=== PATIENT | male | born 1945 | race Caucasian/White ===

== ENCOUNTER 2019-04-09 15:46 | Outpatient (CLI) | payer MEDICARE, OTHER, SELFPAY ==
--- NOTE | ~2019-04-09 | XR_ITS ---
EXAMINATION: XR chest 2V DATE: 04/09/2019 16:27 INDICATION: Primary lung cancer of the right upper lobe TECHNIQUE: PA and lateral views of the chest were obtained. COMPARISON: Chest radiograph dated 02/25/[address] dated 02/14/2019 FINDINGS: No interval change in a large mass at the right upper lobe extending to the apex consistent with biop sy-proven non-small cell carcinoma. A couple additional smaller nodular opacities in the right midlun g consistent with metastatic disease. No new airspace opacities, pulmonary edema, pleural effusion or pneumothorax. Heart size is normal. Mild left and moderate right glenohumeral osteoarthritis. IMPRESSION: 1. Large right upper lobe mass consistent with biopsy-proven primary bronchogenic carcinoma with a co uple likely metastatic nodules in the right midlung zone. Reviewed, dictated and finalized at location A. ONNEL ADVISER IMPRESSION: 1. Large right upper lobe mass consistent with biopsy-proven primary bronchogen ic carcinoma with a couple likely metastatic nodules in the right midlung zone.
== END 2019-04-09 15:47 | disposition home or self-care (01) ==
LOC: ANHIMG 16:02
PROVIDERS: PCP Family Medicine
DX: C34.11 Malignant neoplasm of upper lobe, right bronchus or lung (principal)
CPT/HCPCS: 71046

== ENCOUNTER 2019-06-18 08:33 | Outpatient (CLI) | payer MEDICARE, OTHER, SELFPAY ==
--- NOTE | ~2019-06-18 | CT_ITS ---
EXAMINATION: CT chest w con EXAM DATE: 06/18/2019 09:40 INDICATION: Right lung cancer, response to treatment. TECHNIQUE: Spiral CT of the chest following intravenous injection of 75 mL Omnipaque 350. Axial, cor onal and sagittal images were reviewed. Coronal maximum intensity pixel images of chest reviewed. [facility] dose-length product (DLP) for this examination was 279.56 mGy-cm. The exposure was tailored accor ding to patient size (auto mA exposure control), and iterative reconstruction (ASIR) was used as dawson tional dose reduction technique. Comparison is made to prior examination from 02/14/2019. FINDINGS: There is been interval decrease in bulk, size of the right upper lobe mass, measuring 6.6 x 3.8 cm today versus 7.6 x 5.0 at similar level in February. This soft tissue does extend down into [facility] hilum, but no pathologically enlarged hilar adenopathy. There is occlusion of the right upper lobe bronchus as previously seen. Again there are approximately 8 right lung nodules, appear to have incr eased slightly in size. For example a right lower lobe superior segmental nodule measures 1.2 cm toda y, was 0.9 cm. There are left paratracheal, prevascular lymph nodes which are not pathologically enlarged, but are l arger compared to prior study and could have metastatic involvement. Previously seen enlarged right l ower paratracheal lymph node has normalized in size. There is mild emphysema. There are no pleural o r pericardial effusions. There is no pneumothorax. Heart normal in size. There is mild coronar y arterial calcification, arterial sclerosis. Couple of fluid density liver lesions unchanged likely cysts. Adrenal glands unremarkable. Sclerotic focus in the posterior aspect of T4 measuring 6 mm un changed, could be a bone island given no other foci identified. IMPRESSION: 1. Mixed response. Decrease in size of right upper lobe mass. 2. Approximately 8 right lung metastases with mild increase in size. 3. Decrease in size of right lower paratracheal lymph node, but increase in size of some left paratr acheal and prevascular lymph nodes. 4. Mild emphysema. Reviewed, dictated and finalized at location A. IMPRESSION: 1. Mixed response. Decrease in size of right upper lobe mass. 2. Approximately 8 right lung metastases with mild increase in size. 3. Decrease in size of right lower paratracheal lymph node, but increase in si ze of some left paratracheal and prevascular lymph nodes. 4. Mild emphysema.
[2019-06-18 09:20] LABS: Estimated Glomerular Filt Rate > 60
== END 2019-06-18 08:34 | disposition home or self-care (01) ==
PROVIDERS: PCP Family Medicine; Visit Provider Internal Medicine Medical Oncology
DX: C34.11 Malignant neoplasm of upper lobe, right bronchus or lung (principal); R59.0 Localized enlarged lymph nodes; J43.9 Emphysema, unspecified
CPT/HCPCS: 36415; 71260; Q9967

== ENCOUNTER 2019-12-24 06:51 | Outpatient (NON) | payer MEDICARE, OTHER, SELFPAY ==
[2019-12-25 00:29] LABS: SARS-CoV-2 RNA PCR Negative
== END 2019-12-24 06:52 ==
LOC: ANHCOVIDDT 06:57
PROVIDERS: PCP Family Medicine; Visit Provider Physician Assistant Medical
DX: Z20.828 Contact with and (suspected) exposure to other viral communicable diseases (principal)
CPT/HCPCS: 87635; C9803; U0003

== ENCOUNTER 2020-07-31 06:14 | Emergency (ER) | payer MEDICARE, OTHER, SELFPAY ==
--- NOTE | ~2020-07-31 | XR_ITS ---
XR chest 1V portable 07/31/2020 07:01 Indication: Shortness of breath Procedure: AP portable chest Comparison: Comparison to multiple prior studies sequentially, with oldest reviewed study dated 02/25. Findings: Portacatheter tip in the SVC. Heart size normal. Left lung clear. Decreased size of right a pical mass compared with prior studies. Patchy right-sided infiltrates are present with more focal no dular density right midlung zone, possibly metastatic disease. Impression: 1: Decreased size of right upper lobe mass, consistent with known bronchogenic carcinoma. Probable me tastases in the right lung. 2: Patchy ill-defined infiltrates of the right lung, suspicious for pneumonia. Reviewed, dictated and finalized at location A. Impression: 1: Decreased size of right upper lobe mass, consistent with known bronchogenic carcinoma. Probable metastases in the right lung. 2: Patchy ill-defined infiltrates of the right lung, suspicious for pneumonia.
[2020-07-31 06:20] VITALS: BP 155/47; PULSE 104; RESP 26; TEMP 36.6; O2SAT 97
--- NOTE | 2020-07-31 06:34 | ECG_ITS ---
Measurements Intervals [place] Rate: 106 P: -4 TN: 144 QRS: 24 QRSD: 84 T: 61 QT: 329 QTc: 437 Interpretive Statements SINUS TACHYCARDIA ABNORMAL ECG Electronically Signed On 07-31-2020 10:07:47 CDT by Kevin Olivarez D.O.
[2020-07-31] MEDS: HEPARIN SOD FLUSH 500 UNITS/5 ML SYRINGE ×2 (06:46→10:15)
[2020-07-31 06:47] VITALS: BP 132/80; PULSE 101; RESP 20; O2SAT 94
[2020-07-31 06:57] LABS: Basophils Percent Auto 0.3 % (0.2-1.2); Eosinophils Absolute Auto 0.1 K/mm3 (0-0.3); Eosinophils Percent Auto 1.9 % (0-4.4); Hematocrit 38.1 % (42.0-52.0); Hemoglobin 11.8 g/dL (14.0-18.0); Immature Granulocyte Absolute 0.02 K/mm3 (0.00-0.031); Immature Granulocyte Percent A 0.3 % (0-0.5); Lymphocytes Absolute Auto 1.77 K/mm3 (0.9-3.2); Lymphocytes Percent Auto 28.5 % (18.3-44.2); Mean Corpuscular Hemoglobin 30.3 pg (26-34); Mean Corpuscular Volume 97.7 fl (80-100); Mean Platelet Volume 10.5 fl (7.4-10.4); Monocytes Absolute Auto 0.7 K/mm3 (0.1-0.6); Monocytes Percent Auto 10.8 % (2.6-8.5); Neutrophils Absolute Auto 3.6 K/mm3 (1.3-6.7); Neutrophils Percent Auto 58.2 % (45.5-73.1); Platelet Count Result 171 k/mm3 (150-375); Red Cell Distribution Width 20.6 % (11.5-14.5); White Blood Count 6.2 K/mm3 (4.5-10.0)
[2020-07-31 07:09] LABS: Alanine Aminotransferase 14 U/L (4-50); Albumin Level 2.8 g/dL (3.5-5.1); Alkaline Phosphatase 67 U/L (38-126); Anion Gap 5 mmol/L (8-16); Aspartate Amino Transferase 27 U/L (17-59); Bilirubin,Total 0.4 mg/dL (0.2-1.3); Blood Urea Nitrogen 12 mg/dL (9-20); Calcium 8.1 mg/dL (8.4-10.2); Carbon Dioxide 25 mmol/L (22-30); Chloride 110 mmol/L (98-107); Estimated CRCL calculation 67 ml/min; Estimated Glomerular Filt Rate > 60; Glucose 96 mg/dL (75-110); Magnesium 1.6 mg/dL (1.6-2.3); Sodium 140 mmol/L (137-145)
[2020-07-31 07:11] LABS: Prothrombin Time 13.9 Seconds (11.1-14.7)
[2020-07-31 07:13] LABS: Partial Thromboplastin Time 93.8 SECONDS (22.3-36.8)
[2020-07-31 07:19] LABS: NT Pro B Type Natriuretic Pept 105 pg/mL (5-100); Troponin I < 0.012 ng/mL (0.000-0.034)
[2020-07-31 08:26] LABS: Add Urine Microscopic? YES; Appearance Urine Cloudy (Clear); Bilirubin Urine Negative (Negative); Color Urine Amber (Yellow); Glucose Urine UA Negative (Negative); Ketones Urine Negative (Negative); Leukocyte Esterase Ur 2+ LEU/UL (Negative); Mucus Urine Heavy /lpf; Nitrate Urine Negative (Negative); Protein Urine 1+ mg/dL (Negative); Specific Grav Ur 1.021 (1.001-1.035); Squamous Epithelial Cell Urine Many /hpf (Few); Urobilinogen Urine Negative mg/dL (<2.0)
[2020-07-31 08:29] LABS: Blood Urine Negative (Negative)
[2020-07-31 08:42] VITALS: BP 116/70; PULSE 104; RESP 20; O2SAT 98
[2020-07-31 09:33] VITALS: BP 118/59; PULSE 113; RESP 20; O2SAT 97
--- NOTE | 2020-07-31 09:51 | ED.SOB ---
HPI - SOB/Dyspnea General Chief Complaint: Shortness of Breath/Dyspnea Stated Complaint: short of breath Time Seen by Provider: 07/31/20 07:12 Source: patient and family Mode of arrival: wheelchair Limitations: no limitations History of Present Illness HPI Narrative: 74-year-old with a history of stage IV lung cancer presently on chemo holiday here with complaints of shortness of breath since early this morning. Patient states that he woke up with difficulty breathing. He states he has cough which is nothing unusual for him. He denies any fever no history of any chest pain. Patient states that he is off chemotherapy for few weeks until he gets a repeat PET scan which is on August 14. He follows with Dr. Mcintyre for his lung cancer. MD elicited complaint: shortness of breath Pertinent past history: other (Lung cancer) Onset (ago): hour(s) (2) Timing: improved Severity: moderate Exacerbating factors: nothing Relieving factors: nothing Known history of: other (Lung cancer) Associated symptoms: denies other symptoms Treatment prior to arrival: none Related Data Home oxygen amount: none Home Medications Medication Instructions Recorded Confirmed finasteride 5 mg tablet 5 mg PO DAILY 02/08/19 09/16/19 aspirin 81 mg tablet,delayed 81 mg PO DAILY 05/17/19 09/16/19 release Allergies Allergy/AdvReac Type Severity Reaction Status Date / Time No Known Allergies Allergy Verified 07/05/19 10:29 Review of Systems Review of Systems: All systems reviewed & are unremarkable except as noted in HPI and below Constitutional: Constitutional: Reports no additional constitutional complaints Eyes: Eyes: Reports no additional eye complaints ENT: Reports system reviewed and no additional complaints, except as documented Cardiovascular: Cardiovascular: Reports no additional cardiovascular complaints Respiratory: Respiratory: Reports as per HPI Gastrointestinal: Gastrointestinal: Reports no additional gastrointestinal complaints Musculoskeletal: Musculoskeletal: Reports no additional musculoskeletal complaints Integumentary/Breasts: Skin/Breast: Reports system reviewed and no additional complaints, except as docu [facility] Past Medical History Medical History (Updated 07/31/20 @ 10:02 by Nima Schumacher MD) Cough Epistaxis Family History Family History Father Family history of coronary artery disease Family history of throat cancer Social History Social History Smoking status: Former smoker Alcohol intake: current Exam Narrative: Exam Narrative: GENERAL: Well-appearing, well-nourished, and in no acute distress. HEAD: Normocephalic, atraumatic. EYES: PERRLA and EOMI.. NECK: Supple. CHEST: Few rhonchi on auscultation .. No respiratory distress. HEART: Regular rate and rhythm. No murmur heard. Normal peripheral pulses. ABDOMEN: Soft, nontender, nondistended, normal active bowel sounds. EXTREMITIES: Normal range of motion. No edema. SKIN: Warm, dry, no rash. NEURO: No focal deficits. Alert and oriented x3. PSYCH: Normal mood and affect. Course Course Emergency Course: Patient states he is feeling much better on arrival. I discussed lab work, chest x-ray findings with the patient and family. I also discussed with Dr. Mcintyre informed him about the chest x-ray findings. He recommended antibiotic and steroids for 10 days. Patient does feel comfortable going home. Vital Signs Vital signs: Vital Signs Temperature 36.6 C 07/31/20 06:20 Pulse Rate 104 H 07/31/20 06:20 Respiratory Rate 26 H 07/31/20 06:20 Blood Pressure 155/47 H 07/31/20 06:20 Pulse Oximetry 97 07/31/20 06:20 Temperature 36.6 C 07/31/20 06:20 Pulse Rate 113 H 07/31/20 09:33 Respiratory Rate 20 07/31/20 09:33 Blood Pressure 118/59 L 07/31/20 09:33 Pulse Oximetry 97 07/31/20 09:33 MDM - SOB/Dyspnea [place]
[2020-07-31 10:15] VITALS: BP 124/57; PULSE 100; RESP 20; O2SAT 95
--- NOTE | 2020-07-31 10:15 | PC.NURSE ---
Per EDP via verbal order readback give another heparin flush prior de-accessing their port-a-cath.
== END 2020-07-31 10:15 | disposition home or self-care (01) ==
PROVIDERS: Emergency Medicine; Emergency Provider Family Medicine; PCP Family Medicine
DX: J18.9 Pneumonia, unspecified organism (principal); C34.11 Malignant neoplasm of upper lobe, right bronchus or lung; R00.0 Tachycardia, unspecified
CPT/HCPCS: 36415; 71045; 80053; 81001; 83735; 83880; 84484; 85025; 85610; 85730; 87086; 87088; 93005; 99284

== ENCOUNTER → 2020-11-17 11:29 | Outpatient (CLI) | payer MEDICARE, OTHER, SELFPAY ==
--- NOTE | ~2020-11-17 | XR_ITS ---
XR chest 2V DATE: 11/17/2020 11:47 INDICATION: Cough TECHNIQUE: 2 views COMPARISON: 07/31/2020 portable upright AP chest FINDINGS: Right internal jugular Port-A-Cath catheter is again noted in the superior vena cava near t he superior cavoatrial junction. There is diminished size of the right upper lobe mass since 06/18/2019, stable or mildly increased in s ize since 07/31/2020. There is right upper lung volume loss with elevation of the right hilum and prominent right apical ca pping. There is mild bibasilar infiltrate and/or atelectasis. There are small pleural effusions, new since . Heart size is normal. No pulmonary vascular congestion or pneumothorax is noted. There is a ortic arch calcification and mild aortic unfolding. IMPRESSION: Stable or mildly increased size of right upper lobe mass 07/31/2020 Mild bibasilar infiltrate and/atelectasis and new small pleural effusions Reviewed, dictated and finalized at location A.
== END ==
PROVIDERS: PCP Family Medicine; Visit Provider Family Medicine
DX: R05.1 Acute cough (principal); R91.8 Other nonspecific abnormal finding of lung field; J90 Pleural effusion, not elsewhere classified
CPT/HCPCS: 71046

== ENCOUNTER 2020-11-26 13:33 | Emergency (ER) | payer MEDICARE, OTHER, SELFPAY ==
--- NOTE | ~2020-11-26 | CT_ITS ---
EXAMINATION: CTA chest PE protocol DATE: 11/26/2020 17:18 INDICATION: Dyspnea. History of lung cancer. TECHNIQUE: Computed tomography angiography (CTA) of the chest was performed with 100 mL Omnipaque-350 intravenous contrast timed to evaluate the pulmonary arteries. Coronal maximum intensity projection 3D-reconstructions were created by the technologist. Automated exposure control and iterative reconst ruction technique were employed. Exam dose: 435.03 mGy-cm total exam DLP. COMPARISON: 11/26/2020 PA and lateral chest 06/18/2019 CT chest FINDINGS: There is diagnostic contrast enhancement of the pulmonary arteries and no evidence of pulmo nary embolus. No thoracic aortic aneurysm or dissection. Normal heart size. Trace pericardial fluid. Prominent soft tissue density projects posterior laterally at the right suprahilar area which may rep resent residual neoplasm and/or scarring. 10.4 mm and 6 mm right lung nodules (images 55 and 40), likely represent metastatic lesions Consider PET/CT imaging for further evaluation as clinically appropriate. No enlarged hilar or mediastinal lymph nodes are noted otherwise. Mild infiltrate or atelectasis in the lower lobes, right greater than left There are moderate right and mild left pleural effusions. Mild ascites. Suspicious new 2.1 cm and 9 mm lower right hepatic masses (series 3 images 235 and 208), possibly met astatic Stable hypoattenuating approximately 2.4 cm lateral segment left hepatic lesion since 06/18/2019, with attenuation of approximately 14 Hounsfield units, likely a stable left hepatic cyst. Stable approxima tely 1 cm medial segment left hepatic probable cyst, unchanged since 06/18/2019. Bilateral glenohumeral osteoarthritis. 6 mm osteosclerotic lesion at the right posterior T6 vertebral body; differential diagnosis includes bone island versus osteosclerotic metastasis from prostate cancer. IMPRESSION: No evidence of pulmonary embolism Prominent soft tissue density projecting posterolaterally from the right suprahilar area which may re present residual neoplasm and/or scarring 10.4 and 6 mm right lung masses, likely metastatic lesions Bilateral pleural effusions, right greater than left Mild ascites Bilateral lower lobe infiltrate or atelectasis, right greater than left T6 osteosclerotic lesions; differential diagnosis includes bone island or metastasis Reviewed, dictated and finalized at Location [facility]. Reviewed, dictated and finalized at location B. IMPRESSION: No evidence of pulmonary embolism Prominent soft tissue density projecting posterolaterally from the right suprah ilar area which may represent residual neoplasm and/or scarring 10.4 and 6 mm r ight lung masses, likely metastatic lesions Bilateral pleural effusions, right greater than left Mild ascites Bilateral lower lobe infiltrate or atelectasis, right greater than left T6 osteosclerotic lesions; differential diagnosis includes bone island or metas tasis
--- NOTE | ~2020-11-26 | XR_ITS ---
EXAMINATION: XR chest 2V EXAM DATE: 11/26/2020 13:55 INDICATION: Dyspnea, PT HAS HX Lung Cancer. TECHNIQUE: Frontal and lateral projections of the chest obtained and reviewed. Comparison is made to prior examination from 11/17/2020, 07/31/2020, 04/09/2019. FINDINGS: There is right-sided portacatheter with intact line. There is right lung volume loss, pat ient may have had pneumonectomy. There is right apical masslike opacity which could be postoperative scarring or radiation related change. Some indistinct right basilar reticulation which also appears u nchanged compared to July, but could be edema or pneumonia. There are small bilateral pleural effusio ns. No pneumothorax. There is aortic arteriosclerosis. Cardiomediastinal silhouette is normal. There are bony degenerative changes. IMPRESSION: 1. Probable partial right pneumonectomy with stable appearance to right upper lobe masslike opacity, could be treated lung cancer. 2. Small bilateral pleural effusions. 3. Right basilar reticulonodular opacities, consider possibility of edema or pneumonia. Reviewed, dictated and finalized at location A. IMPRESSION: 1. Probable partial right pneumonectomy with stable appearance to right upper lobe masslike opacity, could be treated lung cancer. 2. Small bilateral pleural effusions. 3. Right basilar reticulonodular opacities, consider possibility of edema or p neumonia.
--- NOTE | 2020-11-26 13:36 | ECG_ITS ---
Measurements Intervals [place] Rate: 104 P: 48 MD: 182 QRS: 41 QRSD: 87 T: 119 QT: 340 QTc: 449 Interpretive Statements SINUS TACHYCARDIA VENTRICULAR PREMATURE COMPLEX LOW QRS VOLTAGE IN PRECORDIAL LEADS BASELINE ARTIFACT- I, II, III, AVR, AVL, AVF, V4-V5 BORDERLINE ECG Electronically Signed On 11-26-2020 18:52:08 CDT by Kevin Olivarez D.O.
[2020-11-26 13:40] VITALS: BP 128/66; PULSE 110; RESP 14; TEMP 36.8; O2SAT 96
[2020-11-26 14:00] LABS: Basophils Absolute Auto 0.1 K/mm3 (0.0-0.1); Basophils Percent Auto 1.1 % (0.2-1.2); Eosinophils Absolute Auto 0.1 K/mm3 (0-0.3); Eosinophils Percent Auto 0.8 % (0-4.4); Hematocrit 33.9 % (42.0-52.0); Hemoglobin 10.6 g/dL (14.0-18.0); Immature Granulocyte Absolute 0.03 K/mm3 (0.00-0.031); Immature Granulocyte Percent A 0.4 % (0-0.5); Lymphocytes Absolute Auto 3.29 K/mm3 (0.9-3.2); Lymphocytes Percent Auto 46.5 % (18.3-44.2); Mean Corpuscular HGB Conc 31.3 g/dl (32-36); Mean Corpuscular Hemoglobin 30.4 pg (26-34); Mean Corpuscular Volume 97.1 fl (80-100); Mean Platelet Volume 9.9 fl (7.4-10.4); Monocytes Absolute Auto 0.9 K/mm3 (0.1-0.6); Neutrophils Absolute Auto 2.7 K/mm3 (1.3-6.7); Neutrophils Percent Auto 38.2 % (45.5-73.1); Platelet Count Result 284 k/mm3 (150-375); Red Blood Count 3.49 M/mm3 (4.6-6.20); Red Cell Distribution Width 23.1 % (11.5-14.5); White Blood Count 7.1 K/mm3 (4.5-10.0)
[2020-11-26 14:12] LABS: Anion Gap 5 mmol/L (8-16); Blood Urea Nitrogen 10 mg/dL (9-20); Calcium 8.3 mg/dL (8.4-10.2); Carbon Dioxide 25 mmol/L (22-30); Chloride 109 mmol/L (98-107); Estimated CRCL calculation 66 ml/min; Estimated Glomerular Filt Rate > 60; Glucose 85 mg/dL (65-110); Potassium 4.1 mmol/L (3.4-5.0); Sodium 139 mmol/L (137-145)
--- NOTE | 2020-11-26 16:13 | ED.SOB ---
HPI - SOB/Dyspnea General Chief Complaint: Shortness of Breath/Dyspnea Stated Complaint: dyspnea, Time Seen by Provider: 11/26/20 16:12 Source: patient Mode of arrival: ambulatory Limitations: no limitations History of Present Illness HPI Narrative: Patient is a 75 yo male with a history of lung cancer presenting for evaluation of cough, shortness of breath. Patient reportedly seen by his primary care physician today, also at that time was reporting lightheadedness and dizziness which has since resolved. Patient denies any chest pain. States that over the past several days he has been unable to get a deep breath. He denies any leg swelling or calf pain. No history of PE or DVT. He denies any nausea, vomiting, diaphoresis. Patient states that he has no history of COPD or asthma. He is actively undergoing chemotherapy for lung cancer. He is vaccinated for Covid. He denies history of Covid infection. He denies recent sick contacts, rhinorrhea, congestion. He reports mild dry cough. Patient denies fever or chills. Denies abdominal pain. Denies any focal weakness. Related Data Allergies Allergy/AdvReac Type Severity Reaction Status Date / Time No Known Allergies Allergy Verified 11/17/20 08:44 Review of Systems Review of Systems: CONSTITUTIONAL: Denies fever, chills, or sweats. EYES: Denies visual changes, redness, or discharge. ENT: Denies rhinorrhea, congestion, sore throat, or otalgia. CARDIOVASCULAR: Denies chest pain, palpitations, or edema. RESPIRATORY: Reports cough and shortness of breath GASTROINTESTINAL: Denies abdominal pain, nausea, vomiting, or diarrhea. GENITOURINARY: Denies dysuria or hematuria. SKIN: Denies rash or itching. MUSCULOSKELETAL: Denies back pain, joint pain, or myalgia. NEUROLOGIC: Denies headache, numbness, or weakness. [facility] Past Medical History Medical History Cough Epistaxis Lung cancer Poor appetite Family History Family History Father Family history of coronary artery disease Family history of throat cancer Social History Social History Smoking status: Former smoker Alcohol intake: current Exam Narrative: GENERAL: Awake, alert, conversant, thin HEAD: Normocephalic, atraumatic. EYES: PERRLA and EOMI. ENT: Nares clear, no rhinorrhea or epistaxis. Mucous membranes dry NECK: Supple. CHEST: No respiratory distress, breathing even and non labored, lungs are clear to auscultation bilaterally, no crackles, pt is not tachpyneic HEART: Regular rate, sinus rhythm ABDOMEN:Non distended, non tender EXTREMITIES: Normal range of motion. No edema. SKIN: Pale, dry, no rash. NEURO:No focal deficits. Alert and oriented x3 Course Vital Signs Vital signs: Vital Signs Temperature 36.8 C 11/26/20 13:40 Pulse Rate 110 H 11/26/20 13:40 Respiratory Rate 14 11/26/20 13:40 Blood Pressure 128/66 11/26/20 13:40 Pulse Oximetry 96 11/26/20 13:40 Temperature 36.8 C 11/26/20 13:40 Pulse Rate 103 H 11/26/20 22:57 Respiratory Rate 16 11/26/20 22:57 Blood Pressure 112/81 11/26/20 22:57 Pulse Oximetry 100 11/26/20 22:57 MDM - SOB/Dyspnea MDM Narrative Medical decision making narrative: Patient is a 75-year-old presenting for evaluation of shortness of breath with exertion. At the time of assessment, ABCs are intact and vital signs are stable. He is mildly tachycardic. Afebrile, no hypotension. No hypoxia. Lung sounds are clear without crackles or wheezing. Differential includes PE, pneumonia, pulmonary edema. Seems less consistent with asthma/COPD given no reported history, no wheezing. Patient was given steroids and DuoNeb without much improvement in his symptoms. Patient's labs are reassuring. Mild, stable anemia. No electrolyte derangement. No acute kidney injury. No elevation in troponi
[2020-11-26 16:46] VITALS: PULSE 91; RESP 16
[2020-11-26] MEDS: methylPREDNISolone SOD SUCC 125 MG VIAL IV PUSH (16:46)
[2020-11-26] MEDS: SODIUM CHLORIDE 0.9% IV 500 ML 999 ML IV CONT ×2 (16:46→19:56)
[2020-11-26] MEDS: ALBUTEROL SULFATE NEB 2.5 MG/0.5 ML INH 5 MG INHALATION (16:48)
[2020-11-26] MEDS: IPRATROPIUM BR 0.02% INH SOLN 0.5 MG/2.5 ML VIAL INHALATION (16:48)
--- NOTE | 2020-11-26 16:51 | PC.NURSE ---
Called lab at 1653, talk to Kim, added BNP and Trop to green top they have.
[2020-11-26 16:55] VITALS: PULSE 87; RESP 16
--- NOTE | 2020-11-26 16:56 | PC.NURSE ---
Called Lab and talked to Kim at 1658, cancelled duplicate order of BMP and CBCD. Dr. Baker was informed and agreed a second draw was not needed.
[2020-11-26 17:23] LABS: NT Pro B Type Natriuretic Pept 123 pg/mL (5-100); Troponin I < 0.012 ng/mL (0.000-0.034)
[2020-11-26 18:28] VITALS: PULSE 108; RESP 18; O2SAT 96
[2020-11-26 18:42] LABS: Prothrombin Time 12.9 Seconds (11.1-14.7)
[2020-11-26 18:53] LABS: Partial Thromboplastin Time 30.3 SECONDS (22.3-36.8)
[2020-11-26 19:12] LABS: EDCOVIDSCREEN Negative (Negative)
[2020-11-26 19:57] VITALS: BP 134/90; PULSE 108; RESP 18; O2SAT 94
[2020-11-26 22:57] VITALS: BP 112/81; PULSE 103; RESP 16; O2SAT 100
--- NOTE | 2020-11-27 00:42 | PC.NURSE ---
made contact with [facility] to transfer pt to [facility]. [place] [phone]
--- NOTE | 2020-11-27 01:11 | PC.NURSE ---
alves has arrived
--- NOTE | 2020-11-27 04:13 | PC.NURSE ---
Xiong arrived at 0115
[2020-11-27 17:46] LABS: SARS-CoV-2 RNA PCR Negative
== END 2020-11-26 23:50 | disposition short-term general hospital (02) ==
PROVIDERS: Emergency Medicine; Emergency Provider Emergency Medicine; PCP Family Medicine
DX: R06.00 Dyspnea, unspecified (principal); J90 Pleural effusion, not elsewhere classified; C34.90 Malignant neoplasm of unspecified part of unspecified bronchus or lung; Z20.822 Contact with and (suspected) exposure to COVID-19; Z79.899 Other long term (current) drug therapy; Z87.891 Personal history of nicotine dependence; R18.8 Other ascites; M85.88 Other specified disorders of bone density and structure, other site; R00.0 Tachycardia, unspecified; I49.3 Ventricular premature depolarization; R91.8 Other nonspecific abnormal finding of lung field
CPT/HCPCS: 36415; 71046; 71275; 80048; 83880; 84484; 85025; 85610; 85730; 87426; 93005; 94640; 96361; 96374; 99284; C9803; J2930; J7040; Q9967; U0003; U0005